=== PATIENT | male | born 1935 | race Caucasian/White ===

== ENCOUNTER → 2019-12-18 | Outpatient (CLI) | payer OTHER, BC ==
[~2019-12-18] MED LIST: ADVIL FLU & BO1 EACH PO; FISH OIL 1,0001 EAC7 PO; MULTIVITAMINS PO; PROSCAR 5MG TABL5 M1 PO
== END ==
LOC: SJCVC 11:39
PROVIDERS: ATTEND Internal Medicine
DX: R00.1 Bradycardia, unspecified (principal); I48.0 Paroxysmal atrial fibrillation; G45.9 Transient cerebral ischemic attack, unspecified; E78.5 Hyperlipidemia, unspecified; R93.1 Abnormal findings on diagnostic imaging of heart and coronary circulation; Q21.1 Atrial septal defect; D69.3 Immune thrombocytopenic purpura; I25.9 Chronic ischemic heart disease, unspecified; K21.9 Gastro-esophageal reflux disease without esophagitis; Z87.891 Personal history of nicotine dependence; Z79.899 Other long term (current) drug therapy; Z79.82 Long term (current) use of aspirin